=== PATIENT | male | born 1950 | race Native Hawaiian/Other Pacific Islander ===

== ENCOUNTER 2021-02-06 08:49 | Outpatient (CLI) | payer OTHER | END 2021-02-06 19:37 | disposition home or self-care (01) | LOC: INF 08:49 | PROVIDERS: ATTEND Internal Medicine | DX: Z23 Encounter for immunization (principal) | CPT/HCPCS: 96372 ==

== ENCOUNTER 2021-02-26 10:35 | Outpatient (CLI) | payer OTHER | END 2021-02-26 20:18 | disposition home or self-care (01) | LOC: INF 10:35 | PROVIDERS: ATTEND Internal Medicine | DX: Z23 Encounter for immunization (principal) | CPT/HCPCS: 96372 ==